=== PATIENT | female | born 1950 | race Two or more races ===

== ENCOUNTER 2025-01-11 04:23 | Emergency (ER) | payer MEDICARE ==
[~2025-01-11] VITALS: Ht 160 cm; Wt 67.1 kg
[2025-01-11] MEDS ORDERED: ONDANSETRON 4 MG TAB.RAPDIS ONE (04:45)
[2025-01-11] MEDS: ONDANSETRON 4 MG TAB.RAPDIS SL ONE (04:46)
[2025-01-11 07:15] VITALS: BP 136/77; TEMP 98.2; O2SAT 97
== END 2025-01-11 07:16 | disposition home or self-care (01) ==
LOC: ER 04:28
DX: S01.81XA Laceration without foreign body of other part of head, initial encounter (principal); W19.XXXA Unspecified fall, initial encounter; Y93.89 Activity, other specified; Y92.89 Other specified places as the place of occurrence of the external cause; Y99.8 Other external cause status
CPT/HCPCS: 99284; 70450; 12014; Q0162

== ENCOUNTER 2025-01-19 13:09 | Emergency (ER) | payer MEDICARE ==
[~2025-01-19] VITALS: Ht 157.5 cm; Wt 66.2 kg
[2025-01-19 13:16] VITALS: BP 139/78; TEMP 98.3; O2SAT 98
== END 2025-01-19 13:39 | disposition home or self-care (01) ==
LOC: ER 13:16
DX: S01.91XD Laceration without foreign body of unspecified part of head, subsequent encounter (principal); Z48.00 Encounter for change or removal of nonsurgical wound dressing; Z60.2 Problems related to living alone; X58.XXXD Exposure to other specified factors, subsequent encounter
CPT/HCPCS: 99282; A6403

== ENCOUNTER 2025-01-22 13:24 | Emergency (ER) | payer MEDICARE ==
[~2025-01-22] VITALS: Ht 160 cm; Wt 66.2 kg
[2025-01-22 13:29] VITALS: BP 121/78; TEMP 97.8
[2025-01-22 13:58] VITALS: O2SAT 98
== END 2025-01-22 13:59 | disposition home or self-care (01) ==
LOC: ER 13:27
DX: S01.91XD Laceration without foreign body of unspecified part of head, subsequent encounter (principal); Z48.02 Encounter for removal of sutures; X58.XXXD Exposure to other specified factors, subsequent encounter